=== PATIENT | male | born 1965 | race Caucasian/White ===

== ENCOUNTER 2017-04-18 17:51 | Emergency (ER) | payer OTHER ==
[~2017-04-18] VITALS: Ht 180.3 cm; Wt 79.6 kg
[~2017-04-18 17:51] MED LIST: DOXA1TAB86 PO; IBUP600T44 PO; SERT50TA PO
[2017-04-18 17:57] VITALS: TEMP 36.7; Ht 180.3 cm; Wt 79.6 kg
[2017-04-18] MEDS ORDERED: SILO4CAP PO (18:04)
[2017-04-18] MEDS ORDERED: SERT50TA PO (18:04)
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
[2017-04-18] MEDS ORDERED: OPTIRAY 320 IV PRN (18:15)
[2017-04-18 18:24] LABS: BASO % 0.6 %; BASO ABS # 0.04 K/uL (0-0.2); COMPLETE YES; EOS % 1.8 %; HEMATOCRIT 40.2 % (42-52); IG% 0.3 %; LYMPH % 26.3 %; LYMPH ABS # 1.86 K/uL (1.2-3.4); MEAN CELL VOLUME 89.1 fL (80-100); MEAN CORPUSCULAR HEMOGLOBIN 29.9 pg (25-34); MEAN CORPUSCULAR HGB CONC 33.6 g/dl (32-36); MONO % 6.4 %; NEUT % 64.6 %; PLATELET COUNT 173 K/uL (130-400); RED BLOOD COUNT 4.51 M/uL (4.7-6.1); WHITE BLOOD COUNT 7.07 K/uL (4.8-10.8)
[2017-04-18 18:38] LABS: INR 1.1 (0.9-1.1); PARTIAL THROMBOPLASTIN RATIO 0.9; PROTHROMBIN TIME (PATIENT) 11.4 SECONDS (9.0-12.0)
[2017-04-18 18:38] LABS: ISTAT HEMOGLOBIN 13.6 g/dl (14.0-18.0); ISTAT IONIZED CALCIUM 1.2 mmol/l (1.12-1.32)
[2017-04-18 18:47] LABS: BUN/CREATININE RATIO 21.3 (10-20); CALCIUM 9.6 mg/dl (8.5-10.1); CREATININE 1.15 mg/dl (0.60-1.40); POTASSIUM 4.3 mmol/L (3.5-5.1)
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
[2017-04-18 18:58] LABS: URINE APPEARANCE CLEAR (CLEAR); URINE BILIRUBIN NEG (NEG); URINE COLOR YELLOW; URINE NITRITE NEG (NEG); URINE PH 7.5 (4.5-7.5); URINE SPECIFIC GRAVITY 1.018 (1.000-1.030); UROBILINOGEN NEG (NEG)
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
[2017-04-18 18:59] LABS: MANUAL MICROSCOPIC REQUIRED? NO; REVIEW REQ? NO
[2017-04-18] MEDS ORDERED: DIPHTHERIA/TETANUS/PERTUSSIS 0.5 ML SYR/VIAL IM. ONE (19:00)
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
[2017-04-18] MEDS ORDERED: CYCL10TA6 PO (19:49)
[2017-04-18 19:58] VITALS: BP 132/77; PULSE 60; O2SAT 97
== END 2017-04-18 20:01 | disposition home or self-care (01) ==
LOC: EDBD 17:51 → C.EDC 17:52
DX: S82.892A Other fracture of left lower leg, initial encounter for closed fracture (principal); S32.039A Unspecified fracture of third lumbar vertebra, initial encounter for closed fracture; S32.049A Unspecified fracture of fourth lumbar vertebra, initial encounter for closed fracture; S20.221A Contusion of right back wall of thorax, initial encounter; S80.01XA Contusion of right knee, initial encounter; S60.221A Contusion of right hand, initial encounter; S50.11XA Contusion of right forearm, initial encounter; S50.02XA Contusion of left elbow, initial encounter; S90.02XA Contusion of left ankle, initial encounter; V19.40XA Pedal cycle driver injured in collision with unspecified motor vehicles in traffic accident, initial encounter; Y92.488 Other paved roadways as the place of occurrence of the external cause; Y93.55 Activity, bike riding; S90.512A Abrasion, left ankle, initial encounter; S50.312A Abrasion of left elbow, initial encounter; S50.811A Abrasion of right forearm, initial encounter; S60.511A Abrasion of right hand, initial encounter; S80.211A Abrasion, right knee, initial encounter; Z82.49 Family history of ischemic heart disease and other diseases of the circulatory system; Z23 Encounter for immunization

== ENCOUNTER → 2017-09-16 | Outpatient (CLI) | payer OTHER ==
[~2017-09-16] MED LIST changes: -DOXA1TAB86 PO; -IBUP600T44 PO; +SILO4CAP PO
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
== END | disposition home or self-care (01) ==
LOC: C.RAD1850 11:48
PROVIDERS: ATTEND Physician Assistant
DX: R06.02 Shortness of breath (principal); R06.2 Wheezing

== ENCOUNTER 2025-01-09 16:58 | Inpatient (IN) ==
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
[2025-01-09 18:10] LABS: Hematocrit (blood only) 39.3 % (42.0-52.0); Hemoglobin 13.3 g/dl (14.0-18.0); Immature Granulocytes # (auto) 0.04 K/uL (0.01-0.20); Immature Granulocytes % (auto) 0.3 %; Mean Corpuscular Hemoglobin 30.2 pg (25.0-34.0); Mean Corpuscular Volume 89.1 fL (80.0-100.0); Platelet Count 212 K/uL (130-400); RDW Standard Deviation 40.4 fL (36.4-46.3); Red Blood Count 4.41 M/uL (4.70-6.10); White Blood Count 11.81 K/ul (4.8-10.8)
[2025-01-09] MEDS: ONDANSETRON INJ 2 MG/ML 2 ML VIAL IV STA (18:18)
[2025-01-09] MEDS: MoRPHine SULFATE 4 MG/ML 1 ML CARP\\VIAL IV STA (18:20)
[2025-01-09 18:27] LABS: Anion Gap 6.0 (3-11); Blood Urea Nitrogen 33.0 mg/dl (6-23); Calcium 9.8 mg/dl (8.6-10.3); Carbon Dioxide 30.0 mmol/L (21-32); Chloride 106.0 mmol/L (98-107); Creatinine Clr Calc Pharmacy 64.8 ml/min; Glucose 133.0 mg/dl (70-99(Fasting)); Potassium 4.5 mmol/L (3.5-5.1); Sodium 142.0 mmol/L (136-145)
[2025-01-09 18:38] LABS: INR 1.0 (0.9-1.1); Partial Thromboplastin Time 20 Seconds (21-31); Prothrombin Time 10.9 Seconds (9.0-12.0)
--- NOTE | 2025-01-09 18:51 | CT Scan Report ---
EXAM: CT head/brain wo con CLINICAL HISTORY: Fall. TECHNIQUE: Axial non-contrast CT scan of the brain was performed from the skull base to the high parietal region. One of the following dose reduction techniques were utilized for this exam: Automated exposure control, adjustment of the mA and/or kV according to patient size, use of iterative reconstruction. COMPARISON: CT dated 04/18/2017. FINDINGS: Brain Parenchyma: Normal attenuation of the cerebral hemispheres, cerebellum, and brainstem. No evidence of acute infarct, hemorrhage, or mass effect. No abnormal areas of hypo- or hyperattenuation. Ventricular System: Ventricles are normal in size and configuration. No evidence of hydrocephalus or ventricular enlargement. Subarachnoid Spaces: Normal sulci and cisterns. No evidence of subarachnoid hemorrhage or extra-axial fluid collections. Cerebellum and Brainstem: No masses, lesions, or areas of abnormal density. Orbits: Normal appearance of the globes, optic nerves, and extraocular muscles. No evidence of orbital masses or abnormal density. Sinuses: Clear paranasal sinuses. No evidence of sinusitis or mucosal thickening. Mastoid Air Cells: Clear mastoid air cells. No evidence of mastoiditis. Skull: Normal skull morphology. IMPRESSION: 1. Unremarkable CT of the head without contrast. 2. Correlate with clinical findings. Electronically signed by John David 01-09-2025 6:47 PM
--- NOTE | 2025-01-09 18:58 | CT Scan Report ---
EXAM: CT cervical spine wo con CLINICAL HISTORY: fall. TECHNIQUE: CT scan of the cervical spine was performed without the administration of intravenous contrast. Contiguous axial images were obtained from the skull base to the upper thoracic spine. Coronal and sagittal reformatted images were also reviewed. One of the following dose reduction techniques was utilized for this exam. Automated exposure control, adjustment of the mA and/or kV according to patient size, and use of iterative reconstruction. COMPARISON: CT dated 04/18/2017. FINDINGS: Vertebrae: The vertebral bodies are normal in height and alignment. Fracture of the left superior facet of C7 vertebra. The cortical and trabecular bone patterns are normal. No signs of lytic or sclerotic lesions. Normal configuration of the posterior elements. Intervertebral Discs, Spinal canal and neural foraminal. C4-5, C5-6 and C6-7 disc space narrowing. C3-4, C4-5, C5-6 mild disc herniations. Mild canal narrowing. No significant foraminal narrowing. Facet Joints: No evidence of facet arthropathy. Prevertebral Soft Tissues: The prevertebral soft tissues are normal in thickness without evidence of mass or abnormal fluid collection. Additional Findings: No other significant findings are noted in the visualized soft tissue structures or bony elements. IMPRESSION: 1. Newly developed acute fracture of the left superior facet of C7 vertebra. Correlate with clinical findings. 2. Otherwise, no detected interval changes. Electronically signed by John David 01-09-2025 6:57 PM
[2025-01-09] MEDS: SODIUM CHLORIDE 0.9% 1,000 ML IV SCH (19:21)
--- NOTE | 2025-01-09 19:25 | XRay Report ---
EXAM: XR shoulder LT min 2V routine CLINICAL HISTORY: Fall. TECHNIQUE: X-ray images of the left shoulder were obtained in anteroposterior (AP) and Y-view projections. COMPARISON: No prior studies available for comparison. FINDINGS: Bone Structure: Bone structure is normal and aligned. No evidence of fracture or dislocation. Humeral head is properly positioned in the glenoid fossa. No osseous lesions or abnormalities identified. Joint Spaces: Acromioclavicular arthritic changes are evident by marginal bone hypertrophy of the opposing articular surfaces. Glenohumeral joint space is normal. No evidence of joint effusion or subluxation. Soft Tissues: Soft tissues appear normal and unremarkable. No soft tissue swelling, calcifications, or foreign bodies noted. An ECG electrode is noted. Additional Findings: No signs of osteoarthritis, bone spurs, lytic or sclerotic lesions. IMPRESSION: 1. No evidence of acute fracture, dislocation, or significant soft tissue abnormalities. 2. Acromioclavicular arthritic changes. Disclaimer: A subtle bone abnormality or fracture may not be readily apparent on X-rays, thus clinical correlation and further imaging including follow-up CT, MRI, or follow-up X-rays are advised as needed. Electronically signed by John David 01-09-2025 7:25 PM
--- NOTE | 2025-01-09 19:54 | XRay Report ---
EXAM: XR chest 1V portable CLINICAL HISTORY: Fall. TECHNIQUE: An X-ray image of the chest is obtained in AP projection. COMPARISON: 06/10/2024. FINDINGS: Pulmonary Parenchyma: Lungs are clear bilaterally. No evidence of consolidation, collapse, or focal opacities. No pulmonary nodules are identified. No evidence of pleural effusion or pleural thickening. Heart and Mediastinum: Heart size and shape are normal. No mediastinal widening or masses. No hilar or mediastinal lymphadenopathy. Bony Thorax: Bony thorax appears intact without fractures or deformities. Soft Tissues: Soft tissues overlying the chest wall are unremarkable. IMPRESSION: 1. Normal chest X-ray. No acute cardiopulmonary abnormalities are identified. 2. No interval changes. Electronically signed by John David 01-09-2025 7:53 PM
[2025-01-09] MEDS: KETOROLAC TROMETHAMINE 15 MG/ML VIAL IV STA (19:55)
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
[2025-01-09] MEDS: ACETAMINOPHEN 325 MG TAB PO PRN (21:49)
[2025-01-09] MEDS ORDERED: ONDANSETRON INJ 2 MG/ML 2 ML VIAL IV PRN (22:22)
[2025-01-09] MEDS ORDERED: MoRPHine SULFATE 2 MG/ML CARP IV PRN (22:22)
[2025-01-09] MEDS ORDERED: MELATONIN 3 MG TAB PO PRN (22:22)
[2025-01-09] MEDS ORDERED: POLYETHYLENE (MIRALAX) 17 GM PACK PO PRN (22:22)
[2025-01-09] MEDS ORDERED: ACETAMINOPHEN 325 MG TAB PO PRN (22:22)
[2025-01-09] MEDS: MoRPHine SULFATE 2 MG/ML CARP IV PRN (22:51)
[2025-01-10 01:53] LABS: Creatine Kinase 121.0 U/L (30-223)
[2025-01-10] MEDS: KETOROLAC TROMETHAMINE 15 MG/ML VIAL IV PRN (06:10)
[2025-01-10 06:40] LABS: Hematocrit (blood only) 38.0 % (42.0-52.0); Hemoglobin 12.8 g/dl (14.0-18.0); Mean Corpuscular Hemoglobin 30.3 pg (25.0-34.0); Mean Corpuscular Volume 89.8 fL (80.0-100.0); Platelet Count 191 K/uL (130-400); RDW Standard Deviation 41.1 fL (36.4-46.3); Red Blood Count 4.23 M/uL (4.70-6.10); White Blood Count 7.35 K/ul (4.8-10.8)
[2025-01-10 06:57] LABS: Anion Gap 5.0 (3-11); Blood Urea Nitrogen 32.0 mg/dl (6-23); Calcium 8.4 mg/dl (8.6-10.3); Carbon Dioxide 29.0 mmol/L (21-32); Chloride 107.0 mmol/L (98-107); Creatinine Clr Calc Pharmacy 71.3 ml/min; Glucose 95.0 mg/dl (70-99(Fasting)); Potassium 4.1 mmol/L (3.5-5.1); Sodium 141.0 mmol/L (136-145)
[2025-01-10] MEDS: SERTRALINE HCL 50 MG TABLET PO SCH (08:06)
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
[2025-01-10] MEDS: ACETAMINOPHEN 325 MG TAB PO SCH (10:56)
[2025-01-10 14:15] VITALS: BP 112/71; PULSE 51; RESP 18; TEMP 98.2; O2SAT 96
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
== END 2025-01-10 16:27 | disposition home or self-care (01) | DRG 552 ==
LOC: ED 16:58 → SUATTDRO 20:45 → 3N 20:45

== ENCOUNTER 2025-01-12 19:23 | Inpatient (IN) ==
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
[2025-01-12] MEDS: SODIUM CHLORIDE 0.9% 1,000 ML IV ONE (20:48)
[2025-01-12] MEDS: ONDANSETRON INJ 2 MG/ML 2 ML VIAL IV STA (20:49)
[2025-01-12] MEDS: MoRPHine SULFATE 10 MG/ML CARP/VIAL IV STA (20:50)
[2025-01-12] MEDS: FAMOTIDINE 20MG IV PUSH 20 MG/5 ML SYR IV STA (20:51)
[2025-01-12] MEDS: dexAMETHasone**PF** 10 MG/ML VIAL IV ONE (20:51)
[2025-01-12] MEDS: ACETAMINOPHEN 1,000 MG/100 ML VIAL IV STA (20:53)
[2025-01-12 20:57] LABS: Hematocrit (blood only) 42.5 % (42.0-52.0); Hemoglobin 14.7 g/dl (14.0-18.0); Immature Granulocytes # (auto) 0.01 K/uL (0.01-0.20); Immature Granulocytes % (auto) 0.1 %; Mean Corpuscular Hemoglobin 30.2 pg (25.0-34.0); Mean Corpuscular Volume 87.3 fL (80.0-100.0); Platelet Count 233 K/uL (130-400); RDW Standard Deviation 38.5 fL (36.4-46.3); Red Blood Count 4.87 M/uL (4.70-6.10); White Blood Count 7.18 K/ul (4.8-10.8)
[2025-01-12 21:03] LABS: Alanine Aminotransferase 13.0 U/L (7-52); Albumin Globulin Ratio 1.1 (0.9-2); Alkaline Phosphatase 74.0 U/L (34-104); Anion Gap 9.0 (3-11); Bilirubin,Total 0.9 mg/dl (0.2-1.0); Blood Urea Nitrogen 17.0 mg/dl (6-23); Calcium 9.5 mg/dl (8.6-10.3); Carbon Dioxide 24.0 mmol/L (21-32); Chloride 103.0 mmol/L (98-107); Creatinine Clr Calc Pharmacy 79.7 ml/min; Globulin 3.8 gm/dl (2.5-4.0); Glucose 159.0 mg/dl (70-99(Fasting)); Potassium 4.0 mmol/L (3.5-5.1); Sodium 136.0 mmol/L (136-145); Total Protein 7.8 gm/dl (6.0-8.3)
[2025-01-12] MEDS: PROMETHAZINE 25 MG/51 ML BAG IV STA (22:19)
--- NOTE | 2025-01-12 23:39 | XRay Report ---
Exam(s): XR KUB EXAM: XR Abdomen, 1 View CLINICAL HISTORY: Reason for exam: n/v. TECHNIQUE: Frontal supine view of the abdomen/pelvis. COMPARISON: CT abdomen and pelvis: 01/04/2025 FINDINGS: Gastrointestinal tract: Unremarkable. No dilation. Bones/joints: Unremarkable. No acute fracture. Other findings: There is a moderate stool burden. IMPRESSION: There is a moderate stool burden. Electronically signed by: Tremaine Lin MD 01/12/25 23:38 PM
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
[2025-01-13] MEDS: POLYETHYLENE (MIRALAX) 17 GM PACK PO STA (00:45)
[2025-01-13] MEDS ORDERED: NALOXONE HCL 0.4 MG/1 ML VIAL/CARP IV PRN ×3 (02:06→19:12)
[2025-01-13] MEDS ORDERED: HYDROmorphone INJ 1 MG/ML SYRINGE IV PRN ×3 (02:06→19:12)
[2025-01-13] MEDS ORDERED: ONDANSETRON INJ 2 MG/ML 2 ML VIAL IV PRN ×3 (02:06→19:12)
[2025-01-13] MEDS ORDERED: DOCUSATE SODIUM 100 MG CAP PO PRN (02:06)
[2025-01-13] MEDS ORDERED: HYDROmorphone INJ 0.5 MG/0.5 ML SYR IV PRN ×2 (02:06→19:12)
[2025-01-13] MEDS ORDERED: MELATONIN 3 MG TAB PO PRN (02:06)
[2025-01-13] MEDS: ACETAMINOPHEN 325 MG TAB PO SCH (02:29)
[2025-01-13] MEDS: POLYETHYLENE (MIRALAX) 17 GM PACK PO SCH (08:11)
[2025-01-13] MEDS: dexAMETHasone 6 MG in SYRINGE 0 ML IV SCH (08:12)
[2025-01-13] MEDS: LIDOCAINE 5% 1 PATCH TD SCH (08:12)
[2025-01-13] MEDS: SERTRALINE HCL 50 MG TABLET PO SCH (08:12)
[2025-01-13] MEDS: ENOXAPARIN INJ 40 MG/0.4 ML SYR SQ SCH (08:15)
[2025-01-13] MEDS: KETOROLAC TROMETHAMINE 15 MG/ML VIAL IV PRN (08:28)
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
[2025-01-13] MEDS: REMOVE LIDODERM PATCH SCH (14:19)
[2025-01-13] MEDS ORDERED: MIDAZOLAM HCL 1 MG/ML 2ML VIAL ONE (14:21)
[2025-01-13] MEDS ORDERED: FLUMAZENIL 0.1 MG/1 ML 10 ML VIAL IV PRN (14:21)
[2025-01-13] MEDS ORDERED: PROMETHAZINE HCL 6.25 MG in SODIUM CHLORIDE 0.9% 50 ML IV PRN (14:21)
[2025-01-13] MEDS ORDERED: ROCURONIUM BROMIDE 10 MG/ML 5 ML VIAL IV ONE ×3 (14:21→17:58)
[2025-01-13] MEDS ORDERED: ATROPINE SULFATE 0.1 MG/ML 10ML SYR IV PRN (14:21)
[2025-01-13] MEDS ORDERED: LIDOCAINE 2% 2 ML VIAL/AMP(20MG/ML) INFIL ONE (14:22)
[2025-01-13] MEDS ORDERED: ONDANSETRON INJ 2 MG/ML 2 ML VIAL ONE ×2 (14:22→17:58)
[2025-01-13] MEDS ORDERED: PROPOFOL IV EMULSION 10 MG/ML 20 ML VIAL IV ONE (14:22)
[2025-01-13] MEDS ORDERED: DEXAMETHASONE SOD INJ 4 MG/ML VIAL ONE (14:22)
[2025-01-13] MEDS: LACTATED RINGER'S 1,000 ML IV SCH (14:44)
--- NOTE | 2025-01-13 15:37 | History & Physical Bridge Note ---
Date of Service January 13, 2025 C6-7 anterior cervical decompression, fusion, instrumentation History & Physical Bridge Note I have examined the patient, reviewed the History & Physical and in the interval since the performance of the History & Physical I have noted the following changes of clinical significance: no changes noted
[2025-01-13] MEDS ORDERED: ePHEDrine sulfate 50 MG/5 ML SYR ONE (16:23)
[2025-01-13] MEDS ORDERED: HYDROmorphone INJ 2 MG/ML SYR/VIAL ONE (16:44)
[2025-01-13] MEDS ORDERED: SUGAMMADEX SODIUM 200 MG/2 ML VIAL IV ONE (18:33)
[2025-01-13] MEDS ORDERED: KETOROLAC 30 MG/ML VIAL ONE (18:35)
[2025-01-13] MEDS: FLOSEAL HEMOSTATIC MATRIX 5ML TOP ONE (18:39)
[2025-01-13] MEDS: VANCOMYCIN HCL 1000MG/20ML VIAL ONE (18:39)
--- NOTE | 2025-01-13 19:11 | Post Operative Brief Note ---
PG Immediate Post Op with CF Date of Surgery January 13, 2025 Pre & Post Diagnosis Operation Date: 01/13/25 07:50 Pre-Op Diagnosis: C7 cervical fracture Post-Op Diagnosis: C7 cervical fracture I identified the patient and participated in the time-out.: Yes Procedure Operation Date: 01/13/25 07:50 Actual Procedures p C6-C7 Anterior Cervical Discectomy Fusion(Not Applicable) - Salvador Marcum MD Surgeon Salvador Marcum MD Eligibility Supervisor none Estimated Blood Loss 10 Findings Consistent with Post-Op Diagnosis Specimens Specimen Description: None per surgeon
[2025-01-13] MEDS ORDERED: ONDANSETRON 4 MG OD TAB PO PRN (19:12)
[2025-01-13] MEDS ORDERED: RACEPINEPHRINE 2.25% NEBU SOLN 0.5 ML VIAL INH PRN (19:12)
[2025-01-13] MEDS ORDERED: LORazepam 0.5 MG TAB PO PRN (19:12)
[2025-01-13] MEDS ORDERED: SOD PHOSPHATE/SOD BIPHOSPHATE ENEMA 132 ML BTL PR PRN (19:12)
[2025-01-13] MEDS ORDERED: DO NOT ADMINISTER PNEUMOCOCCAL VACCINE PRN (19:12)
[2025-01-13] MEDS ORDERED: ALUMINUM/MAGNESIUM SUSP 30 ML UDC PO PRN (19:12)
[2025-01-13] MEDS ORDERED: diphenhydrAMINE Capsule 25 MG CAP PO PRN (19:12)
[2025-01-13] MEDS ORDERED: MAGNESIUM HYDROXIDE SUSP 30 ML UDC PO PRN (19:12)
[2025-01-13] MEDS ORDERED: ACETAMINOPHEN 500 MG TAB PO PRN (19:12)
[2025-01-13] MEDS ORDERED: PROMETHAZINE 12.5 MG/50.5 ML BAG IV PRN (19:12)
[2025-01-13] MEDS ORDERED: DO NOT ADMINISTER FLU VACCINE PRN (19:12)
[2025-01-13] MEDS ORDERED: dexAMETHasone 8 MG in SYRINGE 0 ML IV PRN (19:12)
[2025-01-13] MEDS ORDERED: METOCLOPRAMIDE HCL INJ 5 MG/ML 2 ML VIAL IV PRN (19:12)
[2025-01-13] MEDS ORDERED: FAMOTIDINE 20 MG TAB PO PRN (19:12)
[2025-01-13] MEDS ORDERED: ACETAMINOPHEN 1,000 MG/100 ML VIAL IV PRN (19:12)
--- NOTE | 2025-01-13 19:21 | Operative Report ---
PG Post Operative Report Pre & Post Diagnosis Operation Date: 01/13/25 07:50 Pre-Op Diagnosis: C7 cervical fracture Post-Op Diagnosis: C7 cervical fracture I identified the patient and participated in the time-out.: Yes Procedure Operation Date: 01/13/25 07:50 Actual Procedures p C6-C7 Anterior Cervical Discectomy Fusion(Not Applicable) - Salvador Marcum MD Surgeon Salvador Marcum MD Servicenow Administrator Developer none Estimated Blood Loss 10 Findings Consistent with Post-Op Diagnosis Specimens none Description of Procedure 1. C6-7 anterior cervical fusion. 2. Insertion of intervertebral cage, Medtronic peek cage, 8 mm x 16 mm x 14 mm. 3. Anterior instrumentation with Medtronic plate, 4 screws. Patient was taken operating room and after adequate anesthesia was carefully positioned supine on the OSI flattop table. After doing so a preprepped was performed, fluoroscopy was brought in for imaging and also for marking for the area of the incision to approach the C6-7 level with the left-sided C7 facet fracture. Prep and drape was performed, surgery started with a transverse incision on the left side of the anterior aspect the cervical spine, advanced down to the anterior aspect the cervical spine in routine fashion without issue. After confirming the location using fluoroscopy, I used fluoroscopy to insert distractor pins at C6 and C7. Retractors were set, I began the procedure under the operative microscope with removing the anterior annulus and then a thorough discectomy was performed with removal of disc and cartilage down to the endplates. Posteriorly decompression was performed using high-speed bur to remove some limited spondylosis, and a combination of curettes and Kerrison punches to decompress across the interspace and out to the uncinates on both sides. Upon completion, I then went through trials, selecting a cage which allowed some distraction of the interspace for indirect decompression of the left C6-7 foraminal region. This cage was obtained, demineralized bone matrix was placed within and then this was tapped into position with excellent position on AP and lateral views. A plate was then selected, Medtronic, the distractor pins were removed Floseal was applied along with bone wax, and then the plate was pinned into place temporarily and checked on fluoroscopy followed by then utilization of an awl to insert 3.5 millimeter screws into the intervertebral body, 4 screws total. All screws were tightened down properly and the locking mechanism was engaged. Observation at this point revealed no bleeding, the operative site had been irrigated vancomycin powder was placed, I then closed this with interrupted 3-0 Vicryl sutures in 2 layers followed by benzoin Steri- Strips and a sterile dressing. Patient tolerated procedure well was taken recovery room in satisfactory condition. I attest to the content of the Intraoperative Record and any orders documented therein. Any exceptions are noted below.
--- NOTE | 2025-01-13 19:37 | Anesthesiology Progress Note ---
Date of Service January 13, 2025 Anesthesia Post Procedure Vital Signs Vital Signs: Temp Pulse Pulse Pulse Resp BP BP 01/13/25 19:30 36.5 C 80 21 123/69 01/13/25 19:20 78 15 126/71 01/13/25 19:10 77 17 137/73 01/13/25 19:00 78 14 137/80 01/13/25 18:54 36.7 C 82 17 131/83 01/13/25 14:37 36.6 C 67 20 126/89 01/13/25 12:02 36.8 C 60 13 120/80 01/13/25 08:13 36.8 C 54 L 14 124/76 01/13/25 02:32 36.3 C L 55 L 16 01/13/25 01:33 62 16 120/78 01/13/25 01:02 52 L 18 01/13/25 00:47 63 20 01/12/25 22:42 53 L 18 01/12/25 21:21 49 L 14 BP Pulse Ox O2 Del Method 01/13/25 19:30 97 Room Air 01/13/25 19:20 95 Room Air 01/13/25 19:10 96 Room Air 01/13/25 19:00 98 Room Air 01/13/25 18:54 95 Room Air 01/13/25 14:37 98 Room Air 01/13/25 12:02 96 Room Air 01/13/25 08:13 97 Room Air 01/13/25 02:32 111/69 97 Room Air 01/13/25 01:33 95 Room Air 01/13/25 01:02 125/81 95 Room Air 01/13/25 00:47 130/80 96 Room Air 01/12/25 22:42 132/82 95 Room Air 01/12/25 21:21 128/86 97 Room Air Pain Intensity Back: Pain Intensity: 3 Head: Pain Intensity: 4 Neck: Pain Intensity: 4 Transfer of Care Handoff Completed per policy Notes Mental Status: alert / awake / arousable Patient Amnestic to Procedure: Yes Nausea / Vomiting: adequately controlled Pain: adequately controlled Airway Patency, RR, SpO2: stable & adequate BP & HR: stable & adequate Hydration State: stable & adequate Anesthetic Complications: no major complications apparent
[2025-01-13] MEDS: DOCUSATE SODIUM/SENNA 50/8.6MG TAB PO SCH (20:29)
[2025-01-13 21:20] LABS: Anion Gap 7.0 (3-11); Blood Urea Nitrogen 27.0 mg/dl (6-23); Calcium 8.7 mg/dl (8.6-10.3); Carbon Dioxide 24.0 mmol/L (21-32); Chloride 105.0 mmol/L (98-107); Creatinine Clr Calc Pharmacy 69.1 ml/min; Glucose 171.0 mg/dl (70-99(Fasting)); Potassium 3.9 mmol/L (3.5-5.1); Sodium 136.0 mmol/L (136-145)
[2025-01-14] MEDS: POLYETHYLENE (MIRALAX) 17 GM PACK PO SCH (06:20)
[2025-01-14 06:44] LABS: Hematocrit (blood only) 36.4 % (42.0-52.0); Hemoglobin 12.7 g/dl (14.0-18.0); Immature Granulocytes # (auto) 0.04 K/uL (0.01-0.20); Immature Granulocytes % (auto) 0.3 %; Mean Corpuscular Hemoglobin 30.5 pg (25.0-34.0); Mean Corpuscular Volume 87.3 fL (80.0-100.0); Platelet Count 200 K/uL (130-400); RDW Standard Deviation 39.3 fL (36.4-46.3); Red Blood Count 4.17 M/uL (4.70-6.10); White Blood Count 12.41 K/ul (4.8-10.8)
[2025-01-14 07:10] LABS: Anion Gap 7.0 (3-11); Blood Urea Nitrogen 26.0 mg/dl (6-23); Calcium 8.5 mg/dl (8.6-10.3); Carbon Dioxide 26.0 mmol/L (21-32); Chloride 105.0 mmol/L (98-107); Creatinine Clr Calc Pharmacy 70.9 ml/min; Glucose 117.0 mg/dl (70-99(Fasting)); Potassium 3.9 mmol/L (3.5-5.1); Sodium 138.0 mmol/L (136-145)
--- NOTE | 2025-01-14 07:57 | Fluoroscopy Report ---
FL cervical 2-3V CLINICAL HISTORY: ACDF C6-C7 COMPARISON STUDY: None pertinent FLUOROSCOPY TIME: 77 seconds FLUOROSCOPY IMAGES: 9 EXPOSURE DOSE: 4.86 mGy FINDINGS: Fluoroscopic guidance for ACDF IMPRESSION: Refer to the procedure report for evaluation based on real-time observation ACT 112: Negative or not required by law. Electronically signed by: Allyson Griffin M.D. 01/14/2025 7:55 AM
[2025-01-14] MEDS ORDERED: CHLORASEPTIC (PHENOL) 1.4% SOLN 180 ML BTL MT PRN (08:10)
--- NOTE | 2025-01-14 08:32 | Orthopedic Progress Note ---
Date of Service January 14, 2025 Assessment & Plan (1) Fracture of C7 vertebra, closed: * Continue Current Treatment * Disposition: home * Daily treatment: Physical Therapy/ Occupational Therapy per protocol * Weight bearing status: Activity as tolerated * Maintain cervical collar at all times besides showering * No NSAIDs * Pain control as needed * Office/hospital f/u 2 weeks for progress check and staple/suture removal * Remainder care per primary team * Stable for discharge from ortho standpoint, further planning per primary team Subjective . Active Problems: S/p C6-7 ACDF POD 1 y/o male s/p C6-7 ACFD. Doing well overall, pain managed and improved function. Denies fever/chills, chest pain/SOB, nausea/vomiting. Otherwise no complaints. Review of Systems All systems reviewed & are unremarkable except as noted in HPI & below. Physical Exam . General: Alert and oriented, no acute distress * Constitutional: well-developed, well-nourished. * Respiratory: Normal respiratory effort, no distress * Gastrointestinal: No tenderness to palpation, no rigidity or guarding. * Skin: No rash or lesion. * Neurologic: Grossly normal * Musculoskeletal: Surgical dressing CDI. Cervical spine region without obvious deformity or overlying skin changes. Collar not removed for exam. Minimal tenderness of surgical region, otherwise no tenderness b/l UE. Neck ROM not assessed. AROM b/l shoulder shrug, flexion, elbow flexion/extension, wrist flexion/extension, finger flexion/extension/opposition intact. Sensation intact radial/median/ulnar nerve distributions. Brisk capillary refill. Results & Data Results & Data Laboratory Results . Diagnostic Findings . PG Care Time/CCT Total # of Minutes Spent Total Time Spent with Patient: Total time spent is greater than 50% in coordination of care (as documented) at patient's floor/unit and/or counseling patient: Coding Level of Care Code 80577 Post Operative Follow-Up Diagnoses Fracture of C7 vertebra, closed S12.600A
[2025-01-14] MEDS ORDERED: DOCUSATE SODIUM/SENNA 50/8.6MG TAB PO SCH (09:00)
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
[2025-01-14 15:19] VITALS: BP 118/76; PULSE 55; RESP 18; TEMP 98.2; O2SAT 98
== END 2025-01-14 17:11 | disposition home or self-care (01) | DRG 473 ==
LOC: ED 19:23 → SUATTDRO 01-13 00:11 → 3W 01-13 00:11 → 3E 01-13 17:27